=== PATIENT | female | born 1995 ===

== ENCOUNTER → 2022-11-09 | Outpatient (CLI) | payer SELFPAY ==
[~2022-11-09] MED LIST: SULTRIDS PO
== END | disposition home or self-care (01) ==
LOC: LAB SHORT 17:17 → LAB 17:17
DX: R10.9 Unspecified abdominal pain (principal)
CPT/HCPCS: 83993; 87338

== ENCOUNTER 2022-11-28 04:09 | Emergency (ER) | payer SELFPAY ==
[~2022-11-28] VITALS: Ht 157.5 cm; Wt 59.0 kg
[2022-11-28 05:29] VITALS: BP 116/78
[2022-11-28] MEDS ORDERED: SULTRIDS PO (07:25)
== END 2022-11-28 07:51 | disposition home or self-care (01) ==
LOC: ER 04:09
DX: L03.116 Cellulitis of left lower limb (principal)
CPT/HCPCS: 73600; 99283-25

== ENCOUNTER 2025-03-05 10:08 | Emergency (ER) | payer OTHER ==
[~2025-03-05] VITALS: Ht 162.6 cm; Wt 65.8 kg
[~2025-03-05 10:08] MED LIST changes: +KETO10 PO
[2025-03-05 12:13] LABS: Source, Urine Clean Catch
[2025-03-05 12:17] LABS: Bilirubin, Urine Neg (Neg); Color, Urine Yellow (P-Yellow); Glucose Qualitative, Urine Neg (Neg); Ketones, Urine Neg (Neg); Leukocyte Esterase, Urine Neg (Neg); Protein, Urine 1+ (Neg); Specific Gravity, Urine 1.005 (1.003-1.022); Urobilinogen, Urine NORM (Normal)
[2025-03-05] MEDS ORDERED: HYDROcodone 5-APAP 325 TAB PO ONE (12:20)
[2025-03-05] MEDS ORDERED: Norco 5-325 Ta1 EACH PO (12:23)
[2025-03-05 12:38] LABS: Red Blood Cells, Urine 0-2 /hpf (0-2); White Blood Cells, Urine 0-2 /hpf (0-5)
[2025-03-05 12:45] VITALS: BP 109/73
== END 2025-03-05 12:51 | disposition home or self-care (01) ==
LOC: ER 10:08
PROVIDERS: Physician Assistant
DX: O34.11 Maternal care for benign tumor of corpus uteri, first trimester (principal); Z3A.13 13 weeks gestation of pregnancy; Z59.89 Other problems related to housing and economic circumstances
CPT/HCPCS: 81001; 99284-25; A9270

== ENCOUNTER 2025-03-07 16:53 | Emergency (ER) | payer OTHER ==
[~2025-03-07] VITALS: Ht 162.6 cm; Wt 61.7 kg
[~2025-03-07 16:53] MED LIST changes: +Norco 5-325 Ta1 EACH PO
[2025-03-07 20:25] VITALS: BP 106/62
== END 2025-03-07 20:30 | disposition home or self-care (01) ==
LOC: ER 16:53
DX: O20.0 Threatened abortion (principal); Z3A.14 14 weeks gestation of pregnancy; D25.9 Leiomyoma of uterus, unspecified
CPT/HCPCS: 76801; 84702; 86900; 86901; 99284-25